=== PATIENT | female | born 1980 | race Caucasian/White ===

== ENCOUNTER → 2016-11-28 | Outpatient (CLI) | payer OTHER | END | disposition home or self-care (01) | LOC: C.PAPS 11:55 | PROVIDERS: ATTEND Obstetrics & Gynecology | DX: Z12.4 Encounter for screening for malignant neoplasm of cervix (principal) ==

== ENCOUNTER 2017-04-17 06:34 | Day surgery (SDC) | payer OTHER ==
[2017-04-04 14:08] VITALS: BMI 39.0
[~2017-04-17] VITALS: Ht 167.6 cm; Wt 109.1 kg
[~2017-04-17 06:34] MED LIST: BCPILLS PO; CEFOXITIN IV 2,000 MG in DEXTROSE 5% 50ML 50 ML IV SCH; IBUP-1050 PO; LACTATED RINGER'S 1000ML 1,000 ML IV SCH; MONT1TAB3 PO
[2017-04-17] MEDS ORDERED: MULT-920 PO (06:52)
[2017-04-17 06:57] VITALS: BP 140/74; PULSE 75; TEMP 36.7; O2SAT 98; Ht 167.6 cm; Wt 109.1 kg
[2017-04-17] MEDS ORDERED: LABETALOL HCL IV 5 MG/ML 20ML IV PRN (07:15)
[2017-04-17] MEDS ORDERED: ONDANSETRON INJ 2 MG/ML 2 ML VIAL IV PRN ×2 (07:15→11:30)
[2017-04-17] MEDS ORDERED: EpHEDrine SULFATE INJ 50 MG/ML AMP IV PRN (07:15)
[2017-04-17] MEDS ORDERED: FENTANYL CITRATE INJ 50 MCG/1 ML 2 ML VIAL IV PRN (07:15)
[2017-04-17] MEDS ORDERED: ATROPINE SULFATE 0.1 MG/ML 5ML SYR IV PRN (07:15)
[2017-04-17] MEDS ORDERED: HYDROmorphone INJ 1 MG/ML SYR IV PRN (07:15)
[2017-04-17] MEDS ORDERED: MEPERIDINE HCL 25 MG/ML CARP IV PRN (07:15)
--- NOTE | 2017-04-17 09:17 | History & Physical Bridge Note ---
H&P Re-Evaluation Bridge Note: I have examined the patient, reviewed the History & Physical and in the interval since the performance of the History & Physical I have noted the following changes of clinical significance: No changes noted
--- NOTE | 2017-04-17 09:17 | Discharge Instructions ---
Discharge Instructions Date of Service Apr 17, 2017. Visit Reason for Visit: Cholelithiasis Discharge Discharge Diagnosis / Problem: laparoscopic cholecystectomy Discharge Goals Goal(s): Decrease discomfort Activity Recommendations Activity Limitations: as noted below Lifting Limitations: no more than 10 pounds Shower/Bathe: tomorrow Driving or Machine Use: resume 3 days after discharge Anesthesia . Post Anesthesia Instructions: If you have had General Anesthesia or IV Sedation: * Do not drive today. * Resume driving when surgeon permits. * Do not make important decisions or sign legal documents today. * Call surgeon for: 1. Temperature elevations greater than 101 degrees F. 2. Uncontrollable pain. 3. Excessive bleeding. 4. Persistent nausea and vomiting. 5. Medication intolerance (nausea, vomiting or rash). * For nausea and vomiting use only clear liquids such as: tea, soda, bouillon until nausea subsides, then gradually increase diet as tolerated. * If you have any concerns or questions, call your surgeon's office. If physician is unavailable and it is an emergency, call 911 or go to the nearest emergency room. . Instructions / Follow-Up Instructions / Follow-Up Dr. Desir as planned in 2 weeks, call [phone] for any questions Diet Recommendations Recommended Home Diet: no limitations Pending Studies Studies pending at discharge: no Medical Emergencies . Who to Call and When: Medical Emergencies: If at any time you feel your situation is an emergency, please call 911 immediately. . Non-Emergent Contact Non-Emergency issues call your: Surgeon Call Non-Emergent contact if: you have a fever, temperature is above 101.5, your pain is not controlled, wound has increased pain, you have any medication questions . . "Provider Documentation" section prepared by Benigno Aldana. .
[2017-04-17] MEDS ORDERED: OXYC-57 PO (09:18)
[2017-04-17] MEDS ORDERED: BUPIVACAINE 0.5 % 5 MG/1 ML MPF 30ML VIAL ONE (09:18)
[2017-04-17] MEDS ORDERED: FENTANYL CITRATE INJ 50 MCG/1 ML 2 ML VIAL ONE ×2 (09:30→11:05)
[2017-04-17] MEDS ORDERED: MIDAZOLAM HCL 1 MG/ML 2ML VIAL ONE (09:30)
[2017-04-17] MEDS ORDERED: PROPOFOL IV EMULSION 10 MG/ML 20 ML VIAL IV ONE (10:06)
[2017-04-17] MEDS ORDERED: ONDANSETRON INJ 2 MG/ML 2 ML VIAL ONE (10:07)
[2017-04-17] MEDS ORDERED: DEXAMETHASONE SOD INJ 4 MG/ML VIAL ONE (10:07)
[2017-04-17] MEDS ORDERED: LIDOCAINE HCL 2% 2 ML VIAL (20MG/ML) ONE (10:07)
[2017-04-17] MEDS ORDERED: ROCURONIUM BROMIDE 10 MG/ML 5 ML VIAL IV ONE ×2 (10:09→10:44)
[2017-04-17] MEDS ORDERED: NEOSTIGMINE METHYLSULFATE 5 MG/5 ML SYR ONE (10:10)
[2017-04-17] MEDS ORDERED: GLYCOPYRROLATE INJ 0.2 MG/ML VIAL ONE (10:10)
[2017-04-17] MEDS: IOPAMIDOL 15 ML IV ONE ×2 (11:03→11:04)
--- NOTE | 2017-04-17 11:18 | [facility] Post Operative Brief Note ---
Immediate Operative Summary Operative Date Apr 17, 2017. Pre-Operative Diagnosis Cholelithiasis Post-Operative Diagnosis Cholelithiasis, Chronic Cholecystitis Procedure(s) Performed Laparoscopic Cholecystectomy With attempted Cholangiogram Surgeon Dr. Rafael Desir [employer] Assistant Surgeon(s) Benigno Aldana PA-C Estimated Blood Loss 10ml Findings Consistent with Post-Op Diagnosis Specimens Permanent Specimen A) Gallbladder and Contents Drains None Anesthesia Type General Complication(s) none
--- NOTE | 2017-04-17 11:23 | [facility] Operative Report ---
Operative Report Operative Date Apr 17, 2017. Pre-Operative Diagnosis Cholelithiasis Post-Operative Diagnosis cholelithiasis, chronic cholecystitis Procedure(s) Performed Laparoscopic cholecystectomy with attempted cholangiogram Surgeon Dr. Rafael Desir [employer] Surgeon(s) Benigno Aldana PA-C Estimated Blood Loss 10ml Findings Inflamed gallbladder with multiple large gallstones. Window of safety obtained , attempted cholangiogram with Ring cholangiocatheter without success. Cystic duct and artery doubly clipped and divided. Specimens Permanent Specimen A) Gallbladder and Contents Drains none Anesthesia GETA Complication(s) None Disposition Recovery Room / PACU Indications 37-year-old female with symptomatic cholelithiasis, plan for laparoscopic cholecystectomy with possible intraoperative cholangiogram. She did have an 8 mm common bile duct on ultrasound. The risks of the procedure were discussed, all questions were answered, and the patient agreed to proceed with surgery as planned. Description of Procedure The patient was properly identified, consented, and taken to the operating room where she was placed in the supine position. General endotracheal anesthesia was induced. SCDs and a safety belt were placed. Preoperative antibiotics were administered. The patient's abdomen was prepped and draped in the standard sterile fashion. A surgical timeout was performed and all parties were in agreement that this was the correct patient and procedure to be performed and we continued as planned. An incision was made superior and to the left of the umbilicus overlying the rectus muscle and the Veress needle was inserted. Saline drop test confirmed entry into the peritoneum. The abdomen was insufflated with carbon dioxide which the patient tolerated without incident. The abdomen was then entered using the Optiview technique and a 5 mm trocar. The laparoscope was inserted and no damage from initial trocar or Veress needle placement was noted, no gross abnormalities were noted within the 4 quadrants of the abdomen. An 11 mm port was placed in the subxiphoid position and two 5 mm ports were then placed in the right subcostal position. The patient was placed in reverse Trendelenburg position and rotated towards the left. The gallbladder was moderately inflamed. The dome of the gallbladder was retracted towards the left upper quadrant and the infundibulum was retracted toward the right lower quadrant revealing Calot's triangle. Peritoneal attachments were taken down with electrocautery and blunt dissection. The cystic duct and artery were circumferentially dissected. A window of safety was obtained showing the cystic duct entering the gallbladder with no aberrant structures noted. The Ring cholangiocatheter was then used to attempt to perform an intraoperative cholangiogram which was unsuccessful. We tried on 2 occasions to obtain an adequate cholangiogram, however. Unable to completely occlude the gallbladder and has a needle within the infundibulum with any success. We did have a very clear critical view of safety and the indication for cholangiogram was soft, therefore we proceeded to abort the cholangiogram and proceed with a cholecystectomy. The cystic duct and artery were doubly clipped and divided. The gallbladder was then lifted off the gallbladder fossa with electrocautery. The gallbladder was placed in an Endo Catch bag and removed through the subxiphoid port site which needed to be expanded to accommodate the gallbladder and large stones. The right upper quadrant was irrigated and hemostasis was found to be good. 5 mm trochars were removed under direct visualization and the abdomen was allowed to collapse. The subxiphoid port site fascia was closed with 0 Vicryl suture. The wound was irrigated, and the skin of all ports was closed with 4-0 Monocryl subcuticular sutures. Dermabond was placed over the wounds. The patient was extubated in the operating room and taken to the PACU where she recovered without apparent incident. All sponge, instrument and needle counts were correct at the conclusion of the procedure. The patient tolerated the procedure well. The physician's assistant passenger locomotive engineer was present and scrubbed for the entirety of the case. He was essential in positioning, prepping and draping the patient, entry into the abdomen, retraction and exposure, removal of the gallbladder, and closure. I attest to the content of the Intraoperative Record and any orders documented therein. Any exceptions are noted below.
--- NOTE | 2017-04-17 11:24 | DIAGNOSTIC IMAGING REPORT ---
CHOLANGIOGRAM O.R. HISTORY: Post cholecystectomy. FLUOROSCOPY TIME: 29 seconds. FINDINGS: Fluoroscopy was provided for an intraoperative cholangiogram status post cholecystectomy. Contrast was injected through the cystic duct remnant. The common bile duct and biliary ductal system is not appreciated due to contrast extravasation. This study is nondiagnostic. IMPRESSION: Fluoroscopy provided for an intraoperative cholangiogram status post cholecystectomy. Common bile duct and biliary duct system is not appreciated as contrast demonstrates extensive extravasation The above report was generated using voice recognition software. It may contain grammatical, syntax or spelling errors. Electronically signed by: Maycol Oneal M.D. 04/17/2017 11:23 AM Dictated Date/Time: 04/17/2017 11:22 AM
[2017-04-17] MEDS ORDERED: LACTATED RINGER'S 1000ML 1,000 ML IV SCH (11:27)
[2017-04-17] MEDS ORDERED: OXYCODONE/ACETAMINOPHEN 5-325 TAB PO PRN (11:30)
[2017-04-17] MEDS ORDERED: MoRPHine SULFATE 4 MG/ML 1 ML CARP\\VIAL IV PRN (11:30)
--- NOTE | 2017-04-17 11:45 | Anesthesiology Progress Note ---
Anesthesia Post Op Note Date & Time Apr 17, 2017 at 11:45 Vital Signs Pain Intensity: 0 Vital Signs Past 12 Hours Date Time Temp Pulse Resp B/P (MAP) Pulse Ox O2 Delivery O2 Flow Rate FiO2 04/17/17 11:35 53 26 119/65 92 Oxymask 10 04/17/17 11:27 36.4 59 18 126/63 96 Oxymask 10 04/17/17 06:57 36.7 75 18 140/74 (96) 98 Room Air Notes Mental Status: alert / awake / arousable, participated in evaluation Pt Amnestic to Procedure: Yes Nausea / Vomiting: adequately controlled Pain: adequately controlled Airway Patency, RR, SpO2: stable & adequate BP & HR: stable & adequate Hydration State: stable & adequate Anesthetic Complications: no major complications apparent
[2017-04-17 12:10] VITALS: BP 113/56; PULSE 56; TEMP 36.8; O2SAT 94
[2017-04-17 12:39] VITALS: BP 115/52; PULSE 59; O2SAT 95
[2017-04-17 13:10] VITALS: BP 110/62; PULSE 79; TEMP 36.9; O2SAT 95
== END 2017-04-17 13:40 | disposition home or self-care (01) ==
LOC: C.ACU 06:34
PROVIDERS: ATTEND Surgery
DX: K80.10 Calculus of gallbladder with chronic cholecystitis without obstruction (principal); E66.9 Obesity, unspecified; K76.9 Liver disease, unspecified; E66.09 Other obesity due to excess calories; E28.2 Polycystic ovarian syndrome; Z80.0 Family history of malignant neoplasm of digestive organs; Z82.49 Family history of ischemic heart disease and other diseases of the circulatory system